=== PATIENT | male | born 1990 | race Caucasian/White ===

== ENCOUNTER 2020-02-20 19:58 | Emergency (ER) | payer BC ==
[~2020-02-20] VITALS: Ht 177.8 cm; Wt 74.8 kg
[2020-02-20] MEDS ORDERED: TYLENOR (20:24)
== END 2020-02-20 22:04 | disposition home or self-care (01) ==
LOC: ER 19:58
DX: S80.02XA Contusion of left knee, initial encounter (principal); W18.09XA Striking against other object with subsequent fall, initial encounter; Y93.89 Activity, other specified; Y92.838 Other recreation area as the place of occurrence of the external cause; Y99.8 Other external cause status

== ENCOUNTER → 2020-02-21 | Outpatient (CLI) | payer OTHER ==
[~2020-02-21] MED LIST: TYLENOR
== END | disposition home or self-care (01) ==
LOC: MRI 14:25
DX: S83.282A Other tear of lateral meniscus, current injury, left knee, initial encounter (principal)
CPT/HCPCS: 73718